=== PATIENT | female | born 1950 | race Caucasian/White ===

== ENCOUNTER → 2017-08-27 | Outpatient (CLI) | payer MEDICARE, OTHER ==
[~2017-08-27] MED LIST: ALEVE 220MG220 MG PO; ALTACE 10MG TAB10 MG PO; ASPI325T6 PO; CIPRO 500MG TA500 MG PO; CLARINEX 5MG5 MG PO; COZAAR100 MG PO; FERROUS SU325 MG/TAB PO; FOLIC ACID 40400 MCG PO; FOSAMAX5 MG PO; LAMISIL250 MG PO; MULTIVITAMIN FO1 CAP PO; NORCO 325 MG-7.1 TAB PO; SINGULAIR 110 MG/TAB PO; ULTRAM 50MG TAB50 MG PO; VITAMIN C BUFF500 MG PO; VYTORIN 10 MG-21 TAB PO; ZITHROMAX1 GM/PACKE PO; vitorin
== END ==
LOC: MC.RAD 10:36
DX: Z12.31 Encounter for screening mammogram for malignant neoplasm of breast (principal)

== ENCOUNTER 2017-11-05 10:16 | Day surgery (SDC) | payer MEDICARE, OTHER ==
[~2017-11-05] VITALS: Ht 165.1 cm; Wt 92.6 kg
[2017-11-05] VITALS (7 sets, daily range): BP systolic 95–115; BP diastolic 48–62; PULSE 57–94; TEMP 97.3–97.6
[2017-11-05] MEDS ORDERED: ZOCOR 20MG20 MG PO (11:00)
[2017-11-05] MEDS ORDERED: ZYRTEC 10MG10 MG PO (11:00)
[2017-11-05] MEDS ORDERED: ZETIA 10MG TAB10 MG PO (11:00)
[2017-11-05] MEDS ORDERED: ANORO IH (11:01)
[2017-11-05] MEDS ORDERED: PRILOSEC 20MG20 MG PO (11:01)
[2017-11-05] MEDS ORDERED: THEO-24100 MG PO (11:02)
[2017-11-05] MEDS ORDERED: CLEOCIN HCL300 MG PO (11:03)
[2017-11-05] MEDS ORDERED: MASON NATURAL1200 MG PO (11:03)
[2017-11-05] MEDS ORDERED: ALEVE LIQCAPS PO (11:04)
== END 2017-11-05 16:21 | disposition home or self-care (01) ==
LOC: SDCO 10:16
DX: K80.10 Calculus of gallbladder with chronic cholecystitis without obstruction (principal); I10 Essential (primary) hypertension; E78.00 Pure hypercholesterolemia, unspecified; K76.0 Fatty (change of) liver, not elsewhere classified; J45.909 Unspecified asthma, uncomplicated; K21.9 Gastro-esophageal reflux disease without esophagitis; M19.90 Unspecified osteoarthritis, unspecified site; Z96.653 Presence of artificial knee joint, bilateral; Z96.642 Presence of left artificial hip joint; Z88.0 Allergy status to penicillin; Z88.2 Allergy status to sulfonamides; Z91.040 Latex allergy status; Z86.73 Personal history of transient ischemic attack (TIA), and cerebral infarction without residual deficits; Z82.3 Family history of stroke; Z82.49 Family history of ischemic heart disease and other diseases of the circulatory system
CPT/HCPCS: J0690; J1100; J1170; J1885; J2310; J2405; J2704; J2710; J7120

== ENCOUNTER → 2018-05-08 | Outpatient (CLI) | payer MEDICARE, OTHER ==
[~2018-05-08] MED LIST changes: +ALEVE LIQCAPS PO; +ANORO IH; +CLEOCIN HCL300 MG PO; +MASON NATURAL1200 MG PO; +PRILOSEC 20MG20 MG PO; +THEO-24100 MG PO; +ZETIA 10MG TAB10 MG PO; +ZOCOR 20MG20 MG PO; +ZYRTEC 10MG10 MG PO
== END ==
LOC: COL.RAD 12:42
DX: N95.0 Postmenopausal bleeding (principal)

== ENCOUNTER 2018-11-10 07:10 | Day surgery (SDC) | payer MEDICARE, OTHER ==
[~2018-11-10] VITALS: Ht 165.1 cm; Wt 92.9 kg
[2018-11-10 07:47] VITALS: BP 140/89; PULSE 91; TEMP 97.2
[2018-11-10] MEDS ORDERED: COZAAR100 MG PO (07:56)
[2018-11-10] MEDS ORDERED: ALEVE 220MG220 MG PO (08:06)
[2018-11-10 09:00] VITALS: BP 118/71; PULSE 78
--- NOTE | 2018-11-10 09:00 | NUR ---
TO [facility] PER CART FROM ENDOSCOPY. ALERT ORIENTED X3, AMBULATED TO RECLINER WITH ASSIST. DR NORRIS TALKED WITH PRIOR TO PATIENT RETURNING TO . RECEIVED WATER AND APPLE SAUCE.
[2018-11-10 09:15] VITALS: BP 127/55; PULSE 68
--- NOTE | 2018-11-10 09:15 | NUR ---
ATE 100% AND TOLERATED WELL AMBULATED TO BATHROOM WITH 1 ASSIST AND TOLERATED WELL.,
--- NOTE | 2018-11-10 09:30 | NUR ---
RECEIVED DISCHARGE INSTRUCTIONS AND VERBALIZED UNDERSTANDING. RECEIVED PICTURES FROM DR NORRIS. DISCONTINUED IV AND INT- CATHETER INTACT.
--- NOTE | 2018-11-10 09:40 | NUR ---
DISCHARGED PER WC BY NURSING STAFF TO PRIVATE CAR IN CARE OF - ERROL
== END 2018-11-10 09:44 | disposition home or self-care (01) ==
LOC: SDCO 07:10
DX: Z12.11 Encounter for screening for malignant neoplasm of colon (principal); I10 Essential (primary) hypertension; E78.00 Pure hypercholesterolemia, unspecified; K76.0 Fatty (change of) liver, not elsewhere classified; E78.5 Hyperlipidemia, unspecified; F32.9 Major depressive disorder, single episode, unspecified; R05 Cough; N17.8 Other acute kidney failure; N60.19 Diffuse cystic mastopathy of unspecified breast; M81.0 Age-related osteoporosis without current pathological fracture; J44.9 Chronic obstructive pulmonary disease, unspecified; J45.909 Unspecified asthma, uncomplicated; M19.90 Unspecified osteoarthritis, unspecified site; Z86.73 Personal history of transient ischemic attack (TIA), and cerebral infarction without residual deficits; Z90.49 Acquired absence of other specified parts of digestive tract; Z96.652 Presence of left artificial knee joint; Z96.642 Presence of left artificial hip joint; Z87.891 Personal history of nicotine dependence
CPT/HCPCS: OP; J2704; J7030

== ENCOUNTER → 2018-12-05 | Outpatient (CLI) | payer MEDICARE, OTHER | LOC: MC.RAD 11:32 | DX: Z12.31 Encounter for screening mammogram for malignant neoplasm of breast (principal) ==

== ENCOUNTER 2019-05-06 14:18 | Outpatient (CLI) | payer MEDICARE, OTHER ==
[~2019-05-06] VITALS: Ht 165.1 cm; Wt 98.9 kg
[2019-05-06 14:43] VITALS: BP 120/64; PULSE 91; TEMP 97.5
== END 2019-05-06 14:47 | disposition home or self-care (01) ==
LOC: EUO 14:18
DX: M81.0 Age-related osteoporosis without current pathological fracture (principal)
CPT/HCPCS: J0897

== ENCOUNTER → 2019-06-18 | Outpatient (CLI) | payer MEDICARE, OTHER | LOC: COL.RAD 07:31 | DX: J98.4 Other disorders of lung (principal) ==

== ENCOUNTER 2019-11-20 09:30 | Outpatient (CLI) | payer MEDICARE, OTHER ==
[~2019-11-20] VITALS: Ht 165.1 cm; Wt 104.2 kg
[2019-11-20 09:57] VITALS: BP 105/54; PULSE 82; TEMP 97
== END 2019-11-20 12:58 | disposition home or self-care (01) ==
LOC: EUO 09:30
DX: M81.0 Age-related osteoporosis without current pathological fracture (principal)
CPT/HCPCS: J0897

== ENCOUNTER 2020-06-22 13:52 | Outpatient (CLI) | payer MEDICARE, OTHER ==
[~2020-06-22] VITALS: Ht 165.1 cm; Wt 98.3 kg
[2020-06-22 14:20] VITALS: BP 109/60; PULSE 112; TEMP 98.2
== END 2020-06-22 14:35 | disposition home or self-care (01) ==
LOC: EUO 13:52
DX: M81.0 Age-related osteoporosis without current pathological fracture (principal)
CPT/HCPCS: J0897

== ENCOUNTER → 2020-08-22 | Day surgery (SDC) | payer MEDICARE, OTHER | LOC: SDCO 08:00 | DX: J34.2 Deviated nasal septum (principal); Z53.8 Procedure and treatment not carried out for other reasons | CPT/HCPCS: J0330; J2250; J2405; J2704 ==

== ENCOUNTER 2021-01-23 14:43 | Outpatient (CLI) | payer MEDICARE, OTHER ==
[~2021-01-23] VITALS: Ht 165.1 cm; Wt 97.4 kg
[2021-01-23 15:20] VITALS: BP 133/61; PULSE 85; TEMP 97.5
[2021-01-23] MEDS ORDERED: BENICAR40 MG PO (15:28)
[2021-01-23] MEDS ORDERED: ALEVE 220MG220 MG PO (15:30)
[2021-01-23] MEDS ORDERED: TRELEGY ELLIPT1 EACH IH (15:31)
== END 2021-01-23 16:33 | disposition home or self-care (01) ==
LOC: EUO 14:43
DX: M81.0 Age-related osteoporosis without current pathological fracture (principal)
CPT/HCPCS: J0897

== ENCOUNTER 2021-02-08 10:01 | Day surgery (SDC) | payer MEDICARE, OTHER ==
[2021-02-08] VITALS (7 sets, daily range): BP systolic 120–142; BP diastolic 67–94; PULSE 77–95; TEMP 98.2–98.3
[~2021-02-08] VITALS: Ht 165.1 cm; Wt 97.6 kg
[~2021-02-08 10:01] MED LIST changes: +BENICAR40 MG PO; +TRELEGY ELLIPT1 EACH IH
[2021-02-08] MEDS ORDERED: PROLIA60 MG/ML SQ (10:49)
--- NOTE | 2021-02-08 14:22 | NUR ---
The patient arrived back to [facility] [facility] from the recovery room and appears to be resting comfortably on the cart. The patient denies any pain or nausea at this time. Post operative vital signs were started at this time. The patient agrees to try some water at this time. The patient's is at her bedside at this time. Will continue to monitor the patient.
--- NOTE | 2021-02-08 14:37 | NUR ---
The patient appears to be tolerating the water well and agrees to try some saltine crackers. The patient's vital signs appear stable. remains at her bedside. Will continue to monitor the patient.
[2021-02-08] MEDS ORDERED: ULTRAM 50MG TAB50 MG PO (14:42)
--- NOTE | 2021-02-08 14:52 | NUR ---
The patient finished the saltine crackers and requests more at this time. The patient continues to deny any pain or nausea at this time. Will continue to monitor the patient.
--- NOTE | 2021-02-08 15:07 | NUR ---
The patient is sitting up in bed and appears to be resting comfortably on the cart. The patient's vital signs appear stable. Call light is within reach. Will continue to monitor the patient.
--- NOTE | 2021-02-08 15:38 | NUR ---
The patient appears to be resting comfortably on the cart with her eyes closed at this time. Respirations even and unlabored. Will continue to monitor the patient.
--- NOTE | 2021-02-08 16:07 | NUR ---
The patient ambulated to the bathroom with the stand by assistance of one nurse and her personal cane. She appeared to tolerate the activity well. The patient voided without difficulty.
--- NOTE | 2021-02-08 16:15 | NUR ---
Discharge instructions were reviewed with the patient and her at this time. They both verbalized understanding and have no questions for the nurse at this time. The patient's IV to her right hand was removed and a pressure dressing was applied to the site. The patient is dressed and ready to be escorted out.
--- NOTE | 2021-02-08 16:25 | NUR ---
The patient was escorted out via wheelchair to a private vehicle by CEDRICK Ramos. The patient's belongings and discharge paperwork were sent with her. The patient's is present to drive her home.
== END 2021-02-08 16:25 | disposition home or self-care (01) ==
LOC: SDCO 10:01
DX: J34.2 Deviated nasal septum (principal); J34.3 Hypertrophy of nasal turbinates; M19.90 Unspecified osteoarthritis, unspecified site; M48.00 Spinal stenosis, site unspecified; J30.9 Allergic rhinitis, unspecified; J44.9 Chronic obstructive pulmonary disease, unspecified; I10 Essential (primary) hypertension; Q27.30 Arteriovenous malformation, site unspecified; F32.9 Major depressive disorder, single episode, unspecified; Z86.73 Personal history of transient ischemic attack (TIA), and cerebral infarction without residual deficits; Z87.891 Personal history of nicotine dependence; Z79.899 Other long term (current) drug therapy; Z90.49 Acquired absence of other specified parts of digestive tract; Z96.642 Presence of left artificial hip joint; Z96.653 Presence of artificial knee joint, bilateral; Z86.2 Personal history of diseases of the blood and blood-forming organs and certain disorders involving the immune mechanism
CPT/HCPCS: J0330; J2250; J2405; J2704; J7120

== ENCOUNTER 2021-06-06 11:16 | Inpatient (IN) | payer MEDICARE, OTHER ==
[~2021-06-06] VITALS: Ht 165.1 cm; Wt 96.1 kg
[~2021-06-06 11:16] MED LIST changes: +PROLIA60 MG/ML SQ
[2021-08-01] VITALS (14 sets, daily range): BP systolic 89–128; BP diastolic 41–80; PULSE 59–98; TEMP 97.6–98.4
[2021-08-01] MEDS ORDERED: MASON NATURAL1200 MG PO (10:00)
--- NOTE | 2021-08-01 18:30 | NUR ---
Patient arrived back to the floor around 1500. She is alert and partially oriented. Her is at bedside. BP is low. She was better before she came to the floor, first BP was 89/46 but is more stable at this time. She is going to get her autologous blood this evening. The order was initially put in wrong so the correct order did not get placed until 1630. Still waiting for the blood to be ready, the lab al the type and cross. She is having pain to her right hip but did not want to give a narcotic at this time because her BP keeps going down. Got an order for tylenol. No other changes at this time. Call light [employer] reach. Bed alarm on. Patient stated she is can feel her upper hip but can not lift her leg yet or move in the bed.
--- NOTE | 2021-08-01 19:30 | NUR ---
PATIENT HAS BLOOD ORDER. BLOOD PICKED UP FROM BLOOD BANK BUT WOULD NOT SCAN INTO COMPUTER. BLOOD TAKEN BACK TO BLOOD BANK.
--- NOTE | 2021-08-01 20:30 | NUR ---
BLOOD BANK CAME TO HELP GET SCANNING TO WORK. BLOOD WAS UNABLE TO BE SCANNED. DR. PARSONS NOTIFIED. HE STATED BLOOD COULD WAIT TO BE GIVEN UNTIL IN THE AM DUE TO PATIENT BLOOD BEING ORDERED BECAUSE OF IT BEING AUTOLOGOUS AND A CHOICE PRIOR TO SURGERY NOT BECAUSE OF LOW H&H. PATIENT WAS AGREEABLE TO THIS.
--- NOTE | 2021-08-01 21:00 | NUR ---
PATIENT IS ALERT AND ORIENTED X4. PATIENT HAS BULKY FOAM TAPE DRESSING TO RIGHT HIP. PATIENT HAS ICE PACK TO RIGHT HIP AND SCDS TO BILATERAL LOWER EXTREMITIES. PATIENT HAD IV TO RIGHT AC THAT WAS LEAKING, NEW IV PLACED TO RIGHT FOREARM. PATIENT WAS ABLE TO DANGLE FEET OFF BED FOR A FEW MINUTES. PATIENT HAS JESUS WITH YELLOW AND CLEAR OUTPUT. PATIENT DENIES PAIN OR FURTHER NEEDS AT THIS TIME. CALL LIGHT WITHIN REACH. HEAD TO TOE ASSESSMENT COMPLETE.
[2021-08-02] VITALS (17 sets, daily range): BP systolic 98–135; BP diastolic 40–78; PULSE 81–106; TEMP 98.2–99.6
--- NOTE | 2021-08-02 05:43 | NUR ---
PATIENT DID WELL THROUGHOUT NIGHT. SLEPT THROUGH MOST OF NIGHT. EMPTIED JESUS. YELLOW AND CLEAR OUTPUT. PATIENT DENIES PAIN OR FURTHER NEEDS. WILL REPORT TO DAYSHIFT.
[2021-08-02] MEDS ORDERED: NORCO 325 MG-7.1 TAB PO (06:43)
[2021-08-02] MEDS ORDERED: ASPI325T6 PO (06:43)
[2021-08-02 06:45] LABS: HEMATOCRIT 28.5 % (37.0-47.0); HEMOGLOBIN 8.8 g/dl (12.5-16.0)
--- NOTE | 2021-08-02 10:13 | NUR ---
Patient is starting blood transfusion at this time. Intially was going to start it 30mins ago but her IV started to infiltrate while the IVF's were running. New IV started and blood has started transfusing at this time. Explained signs and symptoms of reaction to blood. Patient verbalized understanding. Blood checked following protocol with 2 nurses. Starting blood at 60ml/hr at this time. Vital signs stable. No other changes at this time. Call light within reach.
--- NOTE | 2021-08-02 10:24 | NUR ---
Patient is tolerating the transfusion well. Increasing rate to 125ml/hr. No other changes at this time.
--- NOTE | 2021-08-02 11:31 | NUR ---
Follow-up visit; Patient thanked Air Pollution Control Engineer for looking in on her and offering God's blessings and keeping her in Air Pollution Control Engineer's prayers.
--- NOTE | 2021-08-02 13:10 | NUR ---
First unit of blood has been transfused. Patient tolerated well. No other changes at this time. Call light within reach.
--- NOTE | 2021-08-02 14:10 | NUR ---
Second unit started now. Discussed signs of transfusion reactions again. Protocol followed. Blood checked by 2 nurses. Started at 60ml/hr. Will stay with patient for 15mins. No other changes at this time. Call light within reach.
--- NOTE | 2021-08-02 14:30 | NUR ---
Senior Storage Engineer met with patient and her , Emmanuel (ph#[phone]) to discuss discharge planning. Patient lives in [place] with Emmanuel and sees Dr. Brush for primary care. Patient obtains medications from either [facility] by mail or uses [facility]. Patient has no difficulties obtaining medications. Patient has a cane and walker at home. Patient reports she is normally independent with ADLS. Patient reports she has completed DPOA-HC which designates Emmanuel. SW reviewed PT/OT recommendation for home with outpatient PT. Patient is agreeable to this and advised she already has her outpatient PT [place] [facility] [place] Discharge Plan: Home with outpatient PT
--- NOTE | 2021-08-02 19:17 | NUR ---
Patient has been doing well today. She got her blood transfusions today. Her is at bedside. Got the correct size KRUNAL hose on today. No other changes at this time. Call light within reach.
--- NOTE | 2021-08-02 21:00 | NUR ---
PATIENT IS ALERT AND ORIENTED X3. PATIENT GIVEN PAIN MEDS PER ORDERS. PATIENT HAS AQUACELL TO RIGHT HIP AND ICE TO HIP. PATIENT HAS SCDS AND TEDS TO BILATERAL LOWER EXTREMITIES. PATIENT HAS IV TO LEFT AC. PATIENT HAS JESUS WITH YELLOW AND CLEAR OUTPUT. PATIENT IS ON GENERAL DIET. PATIENT DENIES FURTHER NEEDS. CALL LIGHT WITHIN REACH. HEAD TO TOE ASSESSMENT COMPLETE.
--- NOTE | 2021-08-03 03:29 | NUR ---
PATIENT CATHETER DISCONTINUED.
[2021-08-03 03:48] VITALS: BP 139/40; PULSE 91; TEMP 98
--- NOTE | 2021-08-03 04:32 | NUR ---
patient was able to void
--- NOTE | 2021-08-03 05:23 | NUR ---
PATIENT DID WELL THROUGHOUT NIGHT. SLEPT THROUGH MOST OF NIGHT IN CHAIR. PAIN MEDS GIVEN PER ORDERS. JESUS DISCONTINUED AND PATIENT HAS VOIDED. ICE PACK TO RIGHT HIP. NO FURTHER NEEDS AT THIS TIME. WILL REPORT TO DAYSHIFT.
[2021-08-03 06:29] LABS: HEMOGLOBIN 10.2 g/dl (12.5-16.0)
[2021-08-03 06:39] LABS: HEMATOCRIT 32.8 % (37.0-47.0)
[2021-08-03 07:25] VITALS: BP 98/50; PULSE 91; TEMP 98.5
--- NOTE | 2021-08-03 10:30 | NUR ---
Patient alert and oriented, answers questions appropriately. RLE with dressing CDI. Pulses and sensation intact to RLE, no numbness or tingling. FWB. KRUNAL hose and SCDs in place. No c/o at this time.
[2021-08-03 11:14] VITALS: BP 105/44; PULSE 92; TEMP 98.5
--- NOTE | 2021-08-03 12:50 | NUR ---
Discharge instructions reviewed with patient and spouse, verbalized understanding. Discharged via wheelchair to auto/home with spouse at 1245.
== END 2021-08-03 12:45 | disposition home or self-care (01) | DRG 470 ==
LOC: SURG 07-18 07:30 → INPTSU 08-01 09:28 → SURG 08-01 11:00
PROVIDERS: Physician Assistant; ADMIT Orthopaedic Surgery
PROC: 0SR903Z Replacement of Right Hip Joint with Ceramic Synthetic Substitute, Open Approach (ICD-10-PCS; principal; 2021-08-01 13:40)
DX: M16.11 Unilateral primary osteoarthritis, right hip (principal); J44.9 Chronic obstructive pulmonary disease, unspecified; E78.00 Pure hypercholesterolemia, unspecified; Z23 Encounter for immunization
CPT/HCPCS: A4314; A9284; C1713; C1776; J0690; J1200; J1885; J2250; J2370; J2704

== ENCOUNTER 2021-07-26 14:38 | Outpatient (CLI) | payer MEDICARE, OTHER ==
[~2021-07-26] VITALS: Ht 165.1 cm; Wt 97.0 kg
[2021-07-26 15:00] VITALS: BP 105/56; PULSE 101; TEMP 99.1
== END 2021-07-26 16:12 ==
LOC: EUO 14:38
DX: M81.0 Age-related osteoporosis without current pathological fracture (principal)
CPT/HCPCS: J0897

== ENCOUNTER → 2021-09-27 | Outpatient (CLI) | payer MEDICARE, OTHER | LOC: MC.RAD 13:18 | DX: Z12.31 Encounter for screening mammogram for malignant neoplasm of breast (principal); R92.1 Mammographic calcification found on diagnostic imaging of breast ==

== ENCOUNTER → 2021-10-04 | Outpatient (CLI) | payer MEDICARE, OTHER | LOC: MC.RAD 10:46 | DX: R92.1 Mammographic calcification found on diagnostic imaging of breast (principal) ==

== ENCOUNTER 2022-01-25 12:46 | Outpatient (CLI) | payer MEDICARE, OTHER ==
[~2022-01-25] VITALS: Ht 165.1 cm; Wt 93.4 kg
[2022-01-25 13:04] VITALS: BP 112/52; PULSE 99; TEMP 97.7
[2022-01-25] MEDS ORDERED: ALEVE 220MG220 MG PO (13:13)
== END 2022-01-25 13:41 | disposition home or self-care (01) ==
LOC: EUO 12:46
DX: M81.0 Age-related osteoporosis without current pathological fracture (principal)
CPT/HCPCS: J0897

== ENCOUNTER → 2022-05-04 | Outpatient (CLI) | payer MEDICARE, OTHER | LOC: MC.RAD 10:41 | DX: N63.31 Unspecified lump in axillary tail of the right breast (principal) ==

== ENCOUNTER 2022-08-10 18:35 | Emergency (ER) | payer MEDICARE ==
[2022-08-10 19:00] VITALS: TEMP 98.2
[2022-08-10] MEDS ORDERED: DOXYCYCLINE 10100 MG PO (19:47)
[2022-08-10] MEDS ORDERED: PREDNISONE50 MG PO (19:48)
[2022-08-10 20:16] VITALS: BP 129/83; PULSE 76
== END 2022-08-10 20:16 | disposition home or self-care (01) ==
LOC: COL.ER
DX: J44.9 Chronic obstructive pulmonary disease, unspecified (principal)

== ENCOUNTER 2023-08-01 14:57 | Outpatient (CLI) | payer MEDICARE, OTHER ==
[~2023-08-01] VITALS: Ht 165.1 cm; Wt 88.9 kg
[~2023-08-01 14:57] MED LIST changes: +DOXYCYCLINE 10100 MG PO; +PREDNISONE50 MG PO
[2023-08-01 15:08] VITALS: BP 104/66; PULSE 92; TEMP 97.8
[2023-08-01] MEDS ORDERED: PROLIA60 MG/ML SQ (15:32)
--- NOTE | 2023-08-01 15:39 | NUR ---
Pt tolerated prolia without issue. She and exit dept, free of complaints.
== END 2023-08-01 15:39 | disposition home or self-care (01) ==
LOC: EUO 14:57
DX: M81.0 Age-related osteoporosis without current pathological fracture (principal)
CPT/HCPCS: J0897

== ENCOUNTER 2024-02-04 13:00 | Outpatient (CLI) | payer MEDICARE, OTHER ==
[~2024-02-04] VITALS: Ht 165.1 cm; Wt 89.5 kg
[2024-02-04] MEDS ORDERED: Denosumab 60 MG/ML SYRINGE SQ ONE (13:15)
[2024-02-04] MEDS ORDERED: ATACAND32 MG PO (13:31)
[2024-02-04] MEDS ORDERED: PROAIR HFA0.09 MG/AC IH (13:32)
[2024-02-04 13:34] VITALS: BP 109/59; PULSE 69; TEMP 97.8
[2024-02-04] MEDS ORDERED: ALBUTEROL0.83 MG/ML IH (13:34)
--- NOTE | 2024-02-04 14:00 | NUR ---
Pt tolerated prolia without issue. She and exit dept, free of complaints at discharge.
== END 2024-02-04 14:00 | disposition home or self-care (01) ==
LOC: EUO 13:00
DX: M81.0 Age-related osteoporosis without current pathological fracture (principal)
CPT/HCPCS: J0897

== ENCOUNTER 2024-08-07 14:19 | Outpatient (CLI) | payer MEDICARE, OTHER ==
[~2024-08-07] VITALS: Ht 165.1 cm; Wt 88.1 kg
[~2024-08-07 14:19] MED LIST changes: +ALBUTEROL0.83 MG/ML IH; +ATACAND32 MG PO; +PROAIR HFA0.09 MG/AC IH
[2024-08-07 14:41] VITALS: BP 130/57; PULSE 79; TEMP 98
[2024-08-07] MEDS ORDERED: Denosumab 60 MG/ML SYRINGE SQ ONE (14:45)
[2024-08-07 14:55] VITALS: BP 122/61; PULSE 58; TEMP 98.1
--- NOTE | 2024-08-07 15:13 | NUR ---
Pt tolerated prolia without issue. She and exit dept with steady gait. Free of complaints at discharge.
== END 2024-08-07 15:13 | disposition home or self-care (01) ==
LOC: EUO 14:19
DX: M81.0 Age-related osteoporosis without current pathological fracture (principal)
CPT/HCPCS: J0897